=== PATIENT | female | born 1990 | race Asian ===

== ENCOUNTER 2019-07-26 16:27 | Emergency (ER) | payer BC ==
[~2019-07-26] VITALS: Ht 162.6 cm; Wt 55.5 kg
[2019-07-26 16:31] VITALS: Ht 162.6 cm; Wt 55.5 kg
[2019-07-26 17:19] LABS: BASOPHIL % 0.2 % (0-2); PLATELET COUNT 152 x10^3mcL (130-400); RED CELL DISTRIBUTION WIDTH 13.7 % (11.5-14.5)
[2019-07-26 17:38] LABS: CALCIUM 9.8 mg/dL (8.5-10.1); CARBON DIOXIDE 28.9 mmol/L (21-32); CHLORIDE SERUM 102 mmol/L (98-107); CREATININE SERUM 0.7 mg/dL (0.6-1.0); GFR1 > 60 mL/min; GLUCOSE SERUM 141 mg/dL (74-106); POTASSIUM SERUM 3.7 mmol/L (3.5-5.1); SODIUM SERUM 140 mmol/L (136-145)
[2019-07-26 17:43] LABS: ALBUMIN 4.1 g/dL (3.4-5.0); ALKALINE PHOSPHATASE 60 U/L (46-116); ALT/SGPT 25 U/L (14-59); AST/SGOT 17 U/L (15-37); BILIRUBIN TOTAL 0.4 mg/dL (0.20-1.00)
[2019-07-26 18:25] LABS: AMPHETAMINE QUAL UR NONE DETECTED (See below)
[2019-07-26 21:31] VITALS: BP 113/70
== END 2019-07-26 21:31 | disposition home or self-care (01) ==
LOC: ED 16:27
PROVIDERS: Emergency Medicine
DX: O99.345 Other mental disorders complicating the puerperium (principal); F53.0 Postpartum depression
CPT/HCPCS: 36415; G0480